=== PATIENT | female | born 1975 | race Caucasian/White ===

== ENCOUNTER 2017-08-27 15:26 | Emergency (ER) | payer MEDICAID ==
[~2017-08-27] VITALS: Ht 157.5 cm; Wt 66.0 kg
[2017-08-27 15:30] VITALS: Ht 157.5 cm; Wt 66.0 kg
[2017-08-27] MEDS ORDERED: IBUPROFEN 600 MG TAB PO ONE (17:00)
[2017-08-27] MEDS ORDERED: LIDOCAINE 1% (MDV) 20 ML INJ SC ONE (17:00)
[2017-08-27] MEDS ORDERED: IBUP-1542 PO (18:34)
--- NOTE | 2017-08-27 18:34 | ERD ---
ER Documentation Chief Complaint Chief Complaint Genital abscess HPI The patient is a 42-year-old female who presents to the Emergency Department with an infected cyst of the bartholin's gland. The patient reports that she initially noted discomfort to the area approximately one week ago. Since, she has developed increased pain, swelling and redness to the region, which is worsened with any applied pressure. She denies any spontaneous drainage or bleeding. The patient does note a history of similar symptoms in the past, at age 19, that spontaneously resolved. She has not tried any remedies for her symptoms. She denies history of diabetes, HIV, immunocompromised state. Denies fevers, sweats, chills, nausea, vomiting. No other complaints at this time. ROS All systems reviewed and are negative except as per history of present illness. Medications Home Meds Active Scripts Doxycycline Hyclate* (Doxycycline Hyclate*) 100 Mg Tablet.dr, 100 MG PO BID for 10 Days, TAB Prov:DIANE MALDONADO PA-C 08/27/17 Ibuprofen* (Motrin*) 600 Mg Tab, 600 MG PO Q6H Y for PAIN AND OR ELEVATED TEMP, #30 TAB Prov:DIANE MALDONADO PA-C 08/27/17 Allergies Allergies: Coded Allergies: No Known Allergy (Unverified , 08/27/17) PMhx/Soc Medical and Surgical Hx: pt denies Medical Hx, pt denies Surgical Hx Hx Alcohol Use: No Hx Substance Use: No Hx Tobacco Use: No Smoking Status: Never smoker Physical Exam Vitals Vital Signs Date Time Temp Pulse Resp B/P Pulse Ox O2 Delivery O2 Flow Rate FiO2 08/27/17 15:30 98.5 98 18 142/83 98 Physical Exam GENERAL: Well-developed, well-nourished, in no acute distress. HEENT: Head is normocephalic, atraumatic. Moist mucous membranes. NECK: Supple. RESPIRATORY: Lungs are clear to auscultation bilaterally. Equal breath sounds. Normal expiratory effort. CARDIOVASCULAR: Regular rate and rhythm. GASTROINTESTINAL: Abdomen is soft, nontender, and nondistended. No guarding, no rebound tenderness. Normal bowel sounds. FLANK: No CVA tenderness, no mass or swelling. BACK: Normal range of motion. GENITOURINARY: Infected left bartholin's gland cyst, with associated erythema, warmth, swelling and central fluctuance. No abnormal discharge, no bleeding. EXTREMITIES: No clubbing, cyanosis, or edema. Normal skin perfusion. Moving all extremities. NEUROLOGIC: The patient is alert, awake, and oriented x 3. No focal neurologic deficits. INTEGUMENT: Skin is clean, dry and intact. PSYCHIATRIC: Appropriate; Cooperative. Results 24 hrs Current Medications Medications (Trade) Dose Ordered Sig/Jovan Route PRN Reason Start Time Stop Time Status Last Admin Dose Admin Ibuprofen (Motrin) 600 mg ONCE ONCE PO 08/27/17 17:00 08/27/17 17:01 DC 08/27/17 16:52 Lidocaine (Xylocaine 1% (Mdv) 20 ml) 20 ml ONCE ONCE SC 08/27/17 17:00 08/27/17 17:01 DC Procedures/MDM PROCEDURE: INCISION AND DRAINAGE OF ABSCESS WITH PLACEMENT OF NICHOLSON CATHETER INDICATION: Infected left bartholin's gland cyst. CONSENT: Consent was obtained from the patient prior to the procedure. Indications, risks, and benefits were explained at length. Assisted by Dr. Juarez. PROCEDURE SUMMARY: A timeout protocol was performed prior to initiating the procedure. The patient was positioned appropriately. The area was prepared and draped in the usual sterile manner. The site was adequately anesthetized with approximately 5 cc 1% lidocaine without epinephrine. The are was cleaned/ irrigated with 10% betadine solution/ and NaCl. A sterile #11 blade scalpel was used to make a single linear vertical incision along the local skin lines and the copious drainage of purulent discharge was expressed. The area was explored thoroughly and sequestered pockets were opened. Bleeding was minimal. Packing: Nicholson catheter placed, and was appropriately inflated. The patient tolerated the procedure well without complications. Standard post- procedure care was explained and return precautions were given. MEDICAL DECISION MAKING: This is a 42-year-old female presenting to the Emergency Department with an infected left bartholin's gland cyst that underwent incision and drainage. The patient had purulent discharge present s/ p I&D. Normal saline was used for irrigation, until clear fluid was expressed from the site. A nicholson catheter was then placed and appropriately inflated. The patient was neurovascularly intact prior to and status post procedure. She tolerated the procedure well, with no present complications. At this time the patient is in stable condition and therefore can be discharged home with prescription for Doxycycline (per Dr. Juarez recommendation) and Ibuprofen, and given strict return precautions for signs of infections, uncontrollable pain, or any form of worsening or deteriorating condition. The patient is advised to follow up with a primary medical provider in 1-2 days for wound check, or to return to the ER sooner for any new or worsening symptoms. I shared my medical decision making and plan with the patient at length and in great detail and she verbally understands and agrees with the plan for further observation and care as an outpatient. At the time of discharge all questions were answered. Departure Diagnosis: Primary Impression: Infected cyst of Bartholin's gland duct Condition: Stable Patient Instructions: Bartholin's Cyst (I And D) Additional Instructions: Llame al doctor MAANA y tin celeste VINEET PARA DENTRO DE 1-2 WEAVER.Dgale a la secretaria que nosotros le instruimos hacer esta vineet.Avise o llame si ramos condicin se empeora antes de la vineet. Regresa aqui si peor o no mejor. DIANE MALDONADO PA-C Aug 27, 2017 18:34
[2017-08-27] MEDS ORDERED: DOXY100T20 PO (18:35)
== END 2017-08-27 18:50 | disposition home or self-care (01) ==
LOC: FTE 15:26
DX: N75.0 Cyst of Bartholin's gland (principal); L08.89 Other specified local infections of the skin and subcutaneous tissue
CPT/HCPCS: 56420; Z7610